=== PATIENT | female | born 1975 | race Caucasian/White ===

== ENCOUNTER 2017-11-17 17:54 | Inpatient (IN) | payer OTHER ==
--- NOTE | 2017-11-17 18:10 | PDOC ---
Rapid Medical Evaluation Chief Complaint: Bite Time Seen by Provider: 11/17/17 18:10 Medical Evaluation: Allergies Allergy/AdvReac Type Severity Reaction Status Date / Time No Known Allergies Allergy Verified 11/17/17 18:10 11/17/17 18:21 The patient presents with a chief complaint of: leg infection I have performed a brief in-person evaluation of this patient. Pertinent physical exam findings: vss I have ordered the following: labs, The patient will proceed to the ED for further evaluation.
[2017-11-17 18:12] VITALS: BMI 22.4
[2017-11-17 19:00] LABS: BASO % 0.3 % (0-2.0); EOS % 0.3 % (0-4.5); HEMATOCRIT 36.1 % (32.4-45.2); HEMOGLOBIN 11.9 GM/dL (10.7-15.3); LYMPH % 17.7 % (8-40); MCH 28.1 pg (25.7-33.7); MCHC 32.9 g/dl (32.0-36.0); MEAN CELL VOLUME 85.4 fl (80-96); MEAN PLT VOLUME 8.8 fl (7.5-11.1); MONO % 6.3 % (3.8-10.2); NEUT % 75.4 % (42.8-82.8); PLATELET COUNT 216 K/MM3 (134-434); RBC 4.23 M/mm3 (3.60-5.2); RDW 15.6 % (11.6-15.6); WHITE BLOOD COUNT 11.7 K/mm3 (4.0-10.0)
[2017-11-17 19:10] LABS: VENOUS PC02 43.7 mmHg (38-52); VENOUS PH 7.4 (7.32-7.42); VENOUS PO2 21.8 mmHg (28-48)
[2017-11-17 19:22] LABS: ALBUMIN 3.7 g/dl (3.4-5.0); ALK PHOS 72 U/L (45-117); ANION GAP 7 (8-16); BILIRUBIN,TOTAL 0.3 mg/dL (0.2-1.0); BLOOD UREA NITROGEN 8 mg/dL (7-18); CALCIUM 8.2 mg/dL (8.5-10.1); CHLORIDE 105 mmol/L (98-107); CO2 26 mmol/L (21-32); CREATININE 0.4 mg/dL (0.55-1.02); GLUCOSE,RANDOM 90 mg/dL (74-106); POTASSIUM 3.5 mmol/L (3.5-5.1); SGOT/AST 17 U/L (15-37); SGPT/ALT 21 U/L (12-78); SODIUM 138 mmol/L (136-145); TOT PROT 7.6 g/dl (6.4-8.2)
--- NOTE | 2017-11-17 19:24 | PDOC ---
History of Present Illness - General Chief Complaint: Wound Stated Complaint: BITE TO LEG Time Seen by Provider: 11/17/17 18:10 - History of Present Illness Initial Comments: 42 year old female with PMH of anemia (on iron supplementation) presenting with inner thigh swelling and pain for the past week that has gradually worsened. She believes she was bitten by an insect a week ago in her sleep but is unsure what the insect looked like. Since then the area of erythema and swelling gotten worse. She went to her usual health clinical and was prescribed a dose of Augmentin cream that hasn't helped. The original bite site has drained sero-sanguinous fluid. Denies fevers, chills, nausea, vomiting, diarrhea , SOB, chest pain, or other symptoms. 11/17/17 20:05 Past History - Past Medical History Allergies/Adverse Reactions: Allergies Allergy/AdvReac Type Severity Reaction Status Date / Time No Known Allergies Allergy Verified 11/17/17 18:10 Home Medications: Ambulatory Orders NK [No Known Home Medication] 11/17/17 - Suicide/Smoking/Psychosocial Hx Smoking History: Never smoked Hx Alcohol Use: No Drug/Substance Use Hx: No Review of Systems - Review of Systems Constitutional: No: Chills, Diaphoresis, Fever HEENTM: No: Blurred Vision Respiratory: No: Cough, Orthopnea Cardiac (ROS): No: Chest Pain, Lightheadedness ABD/GI: No: Nausea, Poor Appetite, Vomiting : No: Burning, Dysuria, Discharge Musculoskeletal: No: Muscle Pain, Muscle Weakness Integumentary: Yes: Erythema, Lesions, Lumps, Rash. No: Flushing Neurological: No: Headache, Numbness, Paresthesia, Tingling *Physical Exam - Vital Signs Last Vital Signs Temp Pulse Resp BP Pulse Ox 97.9 F 87 18 116/65 100 11/17/17 18:10 11/17/17 18:10 11/17/17 18:10 11/17/17 18:10 11/17/17 18:10 - Physical Exam General Appearance: Yes: Nourished, Appropriately Dressed. No: Apparent Distress HEENT: positive: EOMI, STEPHANIE, Normal ENT Inspection, Normal Voice Neck: positive: Trachea midline, Normal Thyroid, Rigid, Supple. negative: Tender Respiratory/Chest: positive: Lungs Clear, Normal Breath Sounds. negative: Chest Tender, Respiratory Distress, Accessory Muscle Use Cardiovascular: positive: Regular Rhythm, Regular Rate Gastrointestinal/Abdominal: positive: Normal Bowel Sounds, Flat, Soft. negative : Tender Musculoskeletal: positive: Normal Inspection. negative: Muscle Spasm Extremity: positive: Normal Capillary Refill, Normal Inspection, Normal Range of Motion. negative: Tender Integumentary: positive: Rash (Left medial thigh redness and erythema spreading from a central 1cm necrotic wound. Necrotic wound drainguin serous fluid and slightly fluctant but doesn't appear to be an impressive amoutn of subcutaneous fluid or collection. Erytham spreading approximately 7-8 cms circumferentially to the anterior and posterior thigh. No vascular compromise distal to the wound. No skin sloughing.). negative: Normal Color, Dry, Warm Neurologic: positive: Fully Oriented, Alert, Normal Mood/Affect, Normal Response , Motor Strength 12/20 ED Treatment Course - LABORATORY CBC & Chemistry Diagram: 11/17/17 18:49 11/17/17 18:49 - ADDITIONAL ORDERS Additional order review: Laboratory Results 11/17/17 19:05 VBG pH 7.40 POC VBG pCO2 43.7 POC VBG pO2 21.8 L Mixed VBG HCO3 26.6 H 11/17/17 18:49 RBC 4.23 MCV 85.4 MCHC 32.9 RDW 15.6 MPV 8.8 Neutrophils % 75.4 Lymphocytes % 17.7 Monocytes % 6.3 Eosinophils % 0.3 Basophils % 0.3 Medical Decision Making - Medical Decision Making 42 year old female with concern for left medial thigh cellulitis with a necrotic wound. Likely a spider bite (possibly brown recluse although geography isn't typical) but the story is typical (painless bite with central necrosis). No systemic signs but patient will be admitted for IV abx given slight WBC elevation of 11 and area of cellulitis. 11/17/17 20:21 *DC/Admit/Observation/Transfer Diagnosis at time of Disposition: Cellulitis Qualifiers: Site of cellulitis: extremity Site of cellulitis of extremity: lower extremity Laterality: left Qualified Code(s): L03.116 - Cellulitis of left lower limb - Discharge Dispostion Condition at time of disposition: Improved Admit: Yes - Referrals - Patient Instructions - Post Discharge Activity
[2017-11-17] MEDS ORDERED: VANCOMYCIN 1,000 MG in DEXTROSE 5%-WATER - 250 ML IVPB ONE (19:53)
[2017-11-17] MEDS ORDERED: VANCOMYCIN 1 GRAM (PRE-DOCKED) 1,000 MG/250 ML BAG IVPB ONE (20:00)
--- NOTE | 2017-11-17 20:01 | PDOC ---
Attending Attestation - Resident Resident Name: AnayeliDaniellarhiannon - ED Attending Attestation I have performed the following: I have examined & evaluated the patient, The case was reviewed & discussed with the resident, I agree w/resident's findings & plan, Exceptions are as noted - HPI HPI: 11/17/17 19:56 42-year-old female with no past medical history presents with left medial thigh cellulitis. One week ago, the patient was bitten by an insect. The patient has been applying [id number] topical antibiotic cream but reported that the cellulitis has extended significantly throughout the entire medial thigh. Patient denies fevers or chills. Reports significant pain. Came into the ED for further evaluation. - Physicial Exam PE: 11/17/17 19:59 GENERAL: Awake, alert, and fully oriented, in no acute distress. HEAD: No signs of trauma EYES: PERRLA, EOMI, sclera anicteric, conjunctiva clear ENT: Auricles normal inspection, hearing grossly normal, nares patent NECK: Normal ROM, supple EXTREMITIES: Normal range of motion, no edema. No clubbing or cyanosis. No cords, erythema, or tenderness NEUROLOGICAL: Cranial nerves II through XII grossly intact. Normal speech, normal gait SKIN: Warm, Dry. Large ~ 25x25 cm erythema, warm to touch, tender to palpation. Approx 10 x 10 cm induration with central mild oozing. - Medical Decision Making 11/17/17 20:01 Vital Signs Temp Pulse Resp BP Pulse Ox 97.9 F 87 18 116/65 100 11/17/17 18:10 11/17/17 18:10 11/17/17 18:10 11/17/17 18:10 11/17/17 18:10 42-year-old female presents with significant cellulitis. The cellulitis extends essentially throughout the entire medial thigh. Given the extensiveness, will give IV antibiotics and likely admit the patient to the hospital.
[2017-11-17] MEDS ORDERED: PIPERACIL/TAZOB 3.375 GM 3.375 GM/50 ML PREMIX IVPB ONE (20:15)
[2017-11-17] MEDS ORDERED: PIPERACILLIN/TAZOB 3.375 GM 3.375 GM/50 ML BAG IVPB ONE (22:54)
[2017-11-17] MEDS ORDERED: ACETAMINOPHEN 325 MG TABLET (FP) PO PRN (23:05)
--- NOTE | 2017-11-17 23:07 | HP ---
Admitting History and Physical - Primary Care Physician PCP: Suraj Rose - Admission History of Present Illness: 42-year-old female with no past medical history presents with left medial thigh cellulitis. One week ago, the patient was bitten by an insect. The patient has been applying [id number] topical antibiotic cream but reported that the cellulitis has extended significantly throughout the entire medial thigh. Patient denies fevers or chills. Reports significant pain. Came into the ED for further evaluation. - Smoking History Smoking history: Never smoked - Alcohol/Substance Use Hx Alcohol Use: No Home Medications - Allergies Allergies/Adverse Reactions: Allergies Allergy/AdvReac Type Severity Reaction Status Date / Time No Known Allergies Allergy Verified 11/17/17 18:10 - Home Medications Home Medications: Ambulatory Orders Doxycycline Hyclate [Vibramycin -] 100 mg PO BID@1000,1800 #28 capsule 11/21/17 Physical Examination Vital Signs: Vital Signs Temperature 97.9 F 11/17/17 18:10 Pulse Rate 87 11/17/17 18:10 Respiratory Rate 18 11/17/17 18:10 Blood Pressure 116/65 11/17/17 18:10 O2 Sat by Pulse Oximetry (%) 100 11/17/17 18:10 Constitutional: Yes: No Distress HENT: Yes: Atraumatic Neck: Yes: Supple Cardiovascular: Yes: Regular Rate and Rhythm Respiratory: Yes: CTA Bilaterally Gastrointestinal: Yes: Normal Bowel Sounds Extremities: Yes: Other (left thigh cellulitis) Neurological: Yes: Alert, Oriented Labs: CBC, BMP 11/17/17 18:49 11/17/17 18:49 Problem List - Problems (1) Cellulitis Assessment/Plan: iv abx per id need i and d Code(s): L03.90 - CELLULITIS, UNSPECIFIED Qualifiers: Site of cellulitis: extremity Site of cellulitis of extremity: lower extremity Laterality: left Qualified Code(s): L03.116 - Cellulitis of left lower limb Assessment/Plan Laboratory Tests 11/17/17 11/17/17 11/17/17 18:49 18:49 18:49 WBC 11.7 H RBC 4.23 Hgb 11.9 Hct 36.1 MCV 85.4 MCH 28.1 MCHC 32.9 RDW 15.6 Plt Count 216 MPV 8.8 Neutrophils % 75.4 Lymphocytes % 17.7 Monocytes % 6.3 Eosinophils % 0.3 Basophils % 0.3 VBG pH POC VBG pCO2 POC VBG pO2 Mixed VBG HCO3 Sodium 138 Potassium 3.5 Chloride 105 Carbon Dioxide 26 Anion Gap 7 L BUN 8 Creatinine 0.4 L Creat Clearance w eGFR > 60 Random Glucose 90 Lactic Acid 0.7 Calcium 8.2 L Total Bilirubin 0.3 AST 17 ALT 21 Alkaline Phosphatase 72 Total Protein 7.6 Albumin 3.7 Urine HCG, Qual 11/17/17 11/17/17 19:05 20:00 WBC RBC Hgb Hct MCV MCH MCHC RDW Plt Count MPV Neutrophils % Lymphocytes % Monocytes % Eosinophils % Basophils % VBG pH 7.40 POC VBG pCO2 43.7 POC VBG pO2 21.8 L Mixed VBG HCO3 26.6 H Sodium Potassium Chloride Carbon Dioxide Anion Gap BUN Creatinine Creat Clearance w eGFR Random Glucose Lactic Acid Calcium Total Bilirubin AST ALT Alkaline Phosphatase Total Protein Albumin Urine HCG, Qual Negative Active Medications Generic Name Dose Route Start Last Admin Trade Name Freq PRN Reason Stop Dose Admin Acetaminophen 650 mg 11/17/17 23:05 Tylenol - PO Q6H PRN FEVER
[2017-11-18 06:15] LABS: BASO % 0.4 % (0-2.0); EOS % 0.9 % (0-4.5); HEMATOCRIT 34.4 % (32.4-45.2); HEMOGLOBIN 11.5 GM/dL (10.7-15.3); LYMPH % 24.1 % (8-40); MCH 28.4 pg (25.7-33.7); MCHC 33.5 g/dl (32.0-36.0); MEAN CELL VOLUME 84.8 fl (80-96); MEAN PLT VOLUME 8.8 fl (7.5-11.1); MONO % 8.7 % (3.8-10.2); NEUT % 65.9 % (42.8-82.8); PLATELET COUNT 210 K/MM3 (134-434); RBC 4.06 M/mm3 (3.60-5.2); RDW 15.3 % (11.6-15.6); WHITE BLOOD COUNT 10.6 K/mm3 (4.0-10.0)
[2017-11-18 06:45] LABS: ALBUMIN 3.2 g/dl (3.4-5.0); ALK PHOS 59 U/L (45-117); ANION GAP 7 (8-16); BILIRUBIN,TOTAL 0.2 mg/dL (0.2-1.0); BLOOD UREA NITROGEN 9 mg/dL (7-18); CALCIUM 7.7 mg/dL (8.5-10.1); CHLORIDE 107 mmol/L (98-107); CO2 25 mmol/L (21-32); CREATININE 0.5 mg/dL (0.55-1.02); GLUCOSE,RANDOM 84 mg/dL (74-106); POTASSIUM 3.4 mmol/L (3.5-5.1); SGOT/AST 16 U/L (15-37); SGPT/ALT 18 U/L (12-78); SODIUM 139 mmol/L (136-145); TOT PROT 6.7 g/dl (6.4-8.2)
[2017-11-18] MEDS ORDERED: ACETAMINOPHEN 325 MG TABLET (FP) ONE (11:06)
--- NOTE | 2017-11-18 13:31 | CON.ID ---
Consult Consult Specialty:: infectious diseases Reason for Consultation:: thigh abscess - History of Present Illness Chief Complaint: pain swelling History of Present Illness: 42 year old female with PMH of anemia presenting with inner thigh swelling and pain for the past week that has gradually worsened. She believes she was bitten by an insect a week ago in her sleep but is unsure what the insect looked like. Since then the area of erythema and swelling gotten worse. She went to her usual health clinical and was prescribed a dose of Augmentin cream that hasn't helped. The original bite site has drained sero-sanguinous fluid. Denies fevers, chills, nausea, vomiting, diarrhea, SOB, chest pain, or other symptoms. currently patient comes with infected swelling with some drainage with pain and swelling present - History Source History Provided By: Patient, Family Member Limitations to Obtaining History: Language Barrier - Alcohol/Substance Use Hx Alcohol Use: No - Smoking History Smoking history: Never smoked Home Medications - Allergies Allergies/Adverse Reactions: Allergies Allergy/AdvReac Type Severity Reaction Status Date / Time No Known Allergies Allergy Verified 11/17/17 18:10 - Home Medications Home Medications: Ambulatory Orders NK [No Known Home Medication] 11/17/17 Review of Systems - Review of Systems Constitutional: reports: No Symptoms Eyes: reports: No Symptoms HENT: reports: No Symptoms Neck: reports: No Symptoms Cardiovascular: reports: No Symptoms Respiratory: reports: No Symptoms Gastrointestinal: reports: No Symptoms Genitourinary: reports: No Symptoms Musculoskeletal: reports: No Symptoms Integumentary: reports: Change in Color, Erythema, Wound Hematology/Lymphatic: reports: No Symptoms Psychiatric: reports: No Symptoms Physical Exam Vital Signs: Vital Signs Temperature 98.4 F 11/18/17 11:35 Pulse Rate 68 11/18/17 11:35 Respiratory Rate 16 11/18/17 11:35 Blood Pressure 116/68 11/18/17 11:35 O2 Sat by Pulse Oximetry (%) 98 11/18/17 11:35 Constitutional: Yes: Well Nourished, Calm, Mild Distress Eyes: Yes: Conjunctiva Clear HENT: Yes: Atraumatic Neck: Yes: Supple, Trachea Midline Cardiovascular: Yes: Regular Rate and Rhythm Respiratory: Yes: Regular, CTA Bilaterally Gastrointestinal: Yes: Normal Bowel Sounds, Soft Musculoskeletal: Yes: WNL Extremities: Yes: Other (erythema on the leg and swelling with some draiange) Wound/Incision: Yes: Draining Neurological: Yes: Alert, Oriented Psychiatric: Yes: Alert, Oriented Labs: CBC, BMP 11/18/17 05:55 11/18/17 05:55 Assessment/Plan bug bite abscess on the leg wound on the leg plan await for the cx reports will start patient on vanco and zosyn might need drainage rest as per primary team
[2017-11-18] MEDS ORDERED: PIPERACILLIN/TAZOBACTAM 3.375 GM VIAL IVPB ONE ×2 (14:14→17:12)
[2017-11-18] MEDS ORDERED: DEXTROSE 5%-WATER - 50 ML IVPB ONE ×2 (14:14→17:12)
[2017-11-18] MEDS: PIPERACILLIN/TAZOB 3.375 GM 3.375 GM in DEXTROSE 5%-WATER - 50 ML IVPB SCH ×2 (14:29→18:33)
[2017-11-18] MEDS ORDERED: PT OWN MED DRAWER 7, Y5N ONE (14:51)
[2017-11-18] MEDS: VANCOMYCIN 1,250 MG in DEXTROSE 5%-WATER - 250 ML IVPB SCH (15:29)
--- NOTE | 2017-11-18 17:15 | PN ---
Progress Note, Physician - Current Medication List Current Medications: Active Medications Acetaminophen (Tylenol -) 650 mg PO Q6H PRN PRN Reason: FEVER Last Admin: 11/18/17 10:54 Dose: 650 mg Vancomycin HCl 1,250 mg/ (Dextrose) 250 mls @ 166.667 mls/hr IVPB DAILY@1500 JUWAN PRN Reason: Protocol Last Admin: 11/18/17 15:29 Dose: 166.667 mls/hr Piperacillin Sod/Tazobactam (Sod 3.375 gm/ Dextrose) 50 mls @ 100 mls/hr IVPB Q8H-IV JUWAN PRN Reason: Protocol Last Admin: 11/18/17 14:29 Dose: 100 mls/hr - Objective Vital Signs: Vital Signs Temperature 98.3 F 11/18/17 15:09 Pulse Rate 81 11/18/17 15:09 Respiratory Rate 18 11/18/17 15:09 Blood Pressure 117/67 11/18/17 15:09 O2 Sat by Pulse Oximetry (%) 98 11/18/17 11:35 Constitutional: Yes: No Distress HENT: Yes: Atraumatic Neck: Yes: Supple Cardiovascular: Yes: Regular Rate and Rhythm Respiratory: Yes: CTA Bilaterally Gastrointestinal: Yes: Normal Bowel Sounds Extremities: Yes: Other (left thigh cellulitis) Edema: No Peripheral Pulses WNL: Yes Neurological: Yes: Alert, Oriented Labs: CBC, BMP 11/18/17 05:55 11/18/17 05:55 Problem List - Problems (1) Cellulitis Assessment/Plan: iv abx per id Code(s): L03.90 - CELLULITIS, UNSPECIFIED Qualifiers: Site of cellulitis: extremity Site of cellulitis of extremity: lower extremity Laterality: left Qualified Code(s): L03.116 - Cellulitis of left lower limb
[2017-11-19] MEDS ORDERED: PIPERACILLIN/TAZOBACTAM 3.375 GM VIAL IVPB ONE ×3 (02:06→17:32)
[2017-11-19] MEDS ORDERED: DEXTROSE 5%-WATER - 50 ML IVPB ONE ×3 (02:07→17:32)
[2017-11-19] MEDS: PIPERACILLIN/TAZOB 3.375 GM 3.375 GM in DEXTROSE 5%-WATER - 50 ML IVPB SCH ×3 (02:19→18:45)
--- NOTE | 2017-11-19 12:19 | PN ---
Progress Note, Physician History of Present Illness: patient doing well wound increased in size surgery going to see the patient - Current Medication List Current Medications: Active Medications Acetaminophen (Tylenol -) 650 mg PO Q6H PRN PRN Reason: FEVER Last Admin: 11/18/17 10:54 Dose: 650 mg Vancomycin HCl 1,250 mg/ (Dextrose) 250 mls @ 166.667 mls/hr IVPB DAILY@1500 JUWAN PRN Reason: Protocol Last Admin: 11/18/17 15:29 Dose: 166.667 mls/hr Piperacillin Sod/Tazobactam (Sod 3.375 gm/ Dextrose) 50 mls @ 100 mls/hr IVPB Q8H-IV JUWAN PRN Reason: Protocol Last Admin: 11/19/17 09:59 Dose: 100 mls/hr - Objective Vital Signs: Vital Signs Temperature 98.2 F 11/19/17 10:11 Pulse Rate 78 11/19/17 10:11 Respiratory Rate 18 11/19/17 10:11 Blood Pressure 111/63 11/19/17 10:11 O2 Sat by Pulse Oximetry (%) 98 11/18/17 23:10 Constitutional: Yes: No Distress, Calm Cardiovascular: Yes: Regular Rate and Rhythm Respiratory: Yes: Regular, CTA Bilaterally Musculoskeletal: Yes: WNL Extremities: Yes: Other Neurological: Yes: Alert, Oriented Psychiatric: Yes: Alert, Oriented Labs: CBC, BMP 11/18/17 05:55 11/18/17 05:55 Assessment/Plan Problem List - Problems (1) Carbuncle of left lower extremity Code(s): L02.436 - CARBUNCLE OF LEFT LOWER LIMB (2) Cellulitis of left thigh Code(s): L03.116 - CELLULITIS OF LEFT LOWER LIMB (3) Community acquired MRSA infection Code(s): A49.02 - METHICILLIN RESIS STAPH INFECTION, UNSP SITE (4) Left thigh pain Code(s): M79.652 - PAIN IN LEFT THIGH plan continue abx surgery to see the patient once patient is operated will switch to oral abx
[2017-11-19] MEDS ORDERED: PT OWN MED DRAWER 7, Y5N ONE (15:54)
[2017-11-19] MEDS: VANCOMYCIN 1,250 MG in DEXTROSE 5%-WATER - 250 ML IVPB SCH (16:07)
--- NOTE | 2017-11-19 17:15 | PN ---
Progress Note, Physician History of Present Illness: no complaint - Current Medication List Current Medications: Active Medications Acetaminophen (Tylenol -) 650 mg PO Q6H PRN PRN Reason: FEVER Last Admin: 11/18/17 10:54 Dose: 650 mg Vancomycin HCl 1,250 mg/ (Dextrose) 250 mls @ 166.667 mls/hr IVPB DAILY@1500 JUWAN PRN Reason: Protocol Last Admin: 11/19/17 16:07 Dose: 166.667 mls/hr Piperacillin Sod/Tazobactam (Sod 3.375 gm/ Dextrose) 50 mls @ 100 mls/hr IVPB Q8H-IV JUWAN PRN Reason: Protocol Last Admin: 11/19/17 09:59 Dose: 100 mls/hr - Objective Vital Signs: Vital Signs Temperature 97.4 F L 11/19/17 14:58 Pulse Rate 74 11/19/17 14:58 Respiratory Rate 18 11/19/17 14:58 Blood Pressure 90/62 11/19/17 14:58 O2 Sat by Pulse Oximetry (%) 98 11/18/17 23:10 Constitutional: Yes: No Distress HENT: Yes: Atraumatic Neck: Yes: Supple Cardiovascular: Yes: Regular Rate and Rhythm Respiratory: Yes: CTA Bilaterally Gastrointestinal: Yes: Normal Bowel Sounds Extremities: Yes: Other (left thigh cellulitis) Edema: Yes (left thigh) Neurological: Yes: Alert, Oriented Labs: CBC, BMP 11/18/17 05:55 11/18/17 05:55 Problem List - Problems (1) Cellulitis Assessment/Plan: iv abx per id Code(s): L03.90 - CELLULITIS, UNSPECIFIED Qualifiers: Site of cellulitis: extremity Site of cellulitis of extremity: lower extremity Laterality: left Qualified Code(s): L03.116 - Cellulitis of left lower limb
--- NOTE | 2017-11-19 23:16 | CONSULT ---
Consult Consult Specialty:: General Surgery Referred by:: Dr. Oliveros Reason for Consultation:: left medial thigh abscess - History of Present Illness Chief Complaint: left distal medial thigh swelling, redness, pain, warmth after bug bite History of Present Illness: 42yo healthy F with h/o anemia (took Fe last year) and s/p , felt something bite her left lower inner thigh during the night last Friday, but did not wake up fully. In the morning, she scratched the area because it itched but did not notice much. The next day, she saw a small pimple and thought that was all it was. But the area of redness grew larger, and more swollen and she went to her primary care clinic Friday. Her doctor there gave her an antibiotic cream to put on it, and advised her to return or go to ER if it got worse and not better. Over the next three days, it did continue to get more swollen, painful and warm, and the redness spread to the entire medial upper leg, so she came to ER on Friday. She was admitted to medical service with cellulitis of left thigh and a small area of possible abscess and started on IV antibiotics. Culture was sent, which is presumed MRSA as of today. She had a wbc which is coming down, and denies fever or chills, n/v, d/c, but had some trouble walking when the pain was the worst. Today, the pain and redness and swelling are much improved, per pt, as she has only very focal tenderness over the residual necrotic central lesion. The redness has receded to just around the lesion, and there is some serosanguineous and seropurulent drainage from blistered areas around the central necrotic site. ID requested surgical consultation. - History Source History Provided By: Patient, Medical Record Limitations to Obtaining History: No Limitations - Past Medical History ...: No Heme/Onc: Yes: Anemia (took iron last year) - Past Surgical History Past Surgical History: Yes: - Alcohol/Substance Use Hx Alcohol Use: Yes (social, ~twice monthly) History of Substance Use: reports: None - Smoking History Smoking history: Never smoked (used to smoke 1-2 cigs/day but not regularly, was 5-6 yrs ago) - Social History ADL: Independent Occupation: housekeeping Home Medications - Allergies Allergies/Adverse Reactions: Allergies Allergy/AdvReac Type Severity Reaction Status Date / Time No Known Allergies Allergy Verified 11/17/17 18:10 - Home Medications Home Medications: Ambulatory Orders NK [No Known Home Medication] 11/17/17 Family Disease History - Family Disease History Family History: Unremarkable (noncontributory) Review of Systems - Review of Systems Constitutional: denies: Chills, Fever Eyes: denies: Blurred Vision, Recent Change in Vision HENT: denies: Difficult Swallowing, Throat Pain Neck: denies: Swollen Glands, Tenderness Cardiovascular: denies: Chest Pain, Palpitations Respiratory: denies: Cough, SOB Gastrointestinal: denies: Abdominal Pain, Constipation, Diarrhea, Nausea, Vomiting Genitourinary: denies: Burning, Dysuria Musculoskeletal: reports: Extremity Pain (with hpi). denies: Back Pain, Joint Pain Integumentary: reports: Erythema (with hpi), Wound (with hpi) Neurological: denies: Dizziness, Headache Physical Exam Vital Signs: Vital Signs Temperature 97.7 F 11/19/17 18:40 Pulse Rate 77 11/19/17 18:40 Respiratory Rate 18 11/19/17 18:40 Blood Pressure 101/57 11/19/17 18:40 O2 Sat by Pulse Oximetry (%) 98 11/18/17 23:10 Vital Signs Period Temp Pulse Resp BP Sys/Yepez Pulse Ox Last 24 Hr 97.4 F-98.4 F 62-78 18-18 88-111/57-63 Constitutional: Yes: Well Nourished, No Distress, Calm Eyes: Yes: Conjunctiva Clear, EOM Intact HENT: Yes: Atraumatic, Normocephalic Neck: Yes: Supple, Trachea Midline Cardiovascular: Yes: Regular Rate and Rhythm Respiratory: Yes: Regular, CTA Bilaterally Gastrointestinal: Yes: Soft. No: Distention, Tenderness ...Rectal Exam: Yes: Deferred Renal/: No: CVA Tenderness - Left, CVA Tenderness - Right Musculoskeletal: No: Joint Stiffness, Joint Swelling Extremities: Yes: Erythema (local/focal around lower medial left thigh lesion). No: Cool, Cyanosis Edema: No Peripheral Pulses WNL: Yes Integumentary: Yes: Erythema (left lower medial thigh, focal around site of necrotic and blistered skin lesion, mildly indurated, locally tender only, minimally swollen, with full ROM of knee, serosang and seropurulent drainage from blistered areas, no significant drainage expressible from center but multiple small pale areas noted on background of dark/necrotic skin and tissue) Wound/Incision: Yes: Open to air, Draining, Reddened, Other (see above - left with gauze dressing over) Neurological: Yes: Alert, Oriented Psychiatric: Yes: Alert, Oriented Labs: CBC, BMP 11/18/17 05:55 11/18/17 05:55 wbc down from 11.7 Problem List - Problems (1) Carbuncle of left lower extremity Assessment/Plan: admitted to medicine on IV antibiotics per ID including Vanco improvement so far in cellulitis still with carbuncle in need of local debridement Discussed with patient risks, benefits and alternatives of local debridement of left thigh skin and subcutaneous tissue, including but not limited to bleeding, infection, injury to underlying vessels or nerves; alternatives include antibiotics, delayed or no surgery - risks of this include worsening infection, recurrent cellulitis, more extensive tissue loss, inability to heal infection. Patient agreeable to bedside procedure under local anesthetic. Will sign consent and perform tomorrow morning. Pt will need VNS arranged for daily wound care on discharge home. Daily packing changes will be necessary, though patient will be able to shower with packing OUT after first few days, as long as it is replaced shortly after. Details will be in discharge plan after procedure. Pain meds prn - primary team may Rx on discharge Tylenol alternating with ibuprofen should be mainstay, but narcotic may be necessary early on for dressing changes and prn breakthrough pain continue abx per ID, await sensitivities Code(s): L02.436 - CARBUNCLE OF LEFT LOWER LIMB (2) Cellulitis of left thigh Assessment/Plan: improved significantly per pt continue abx as per ID Code(s): L03.116 - CELLULITIS OF LEFT LOWER LIMB (3) Community acquired MRSA infection Assessment/Plan: on Vanco likely secondary to infection through break in skin, either from bug bite, or from scratching after pt counseled to be aware of her MRSA infection, and to promptly seek medical attention for future lesions, possible early skin infections anticipate completing abx course po on discharge or until cellulitis is fully resolved Code(s): A49.02 - METHICILLIN RESIS STAPH INFECTION, UNSP SITE (4) Left thigh pain Code(s): M79.104 - PAIN IN LEFT THIGH
[2017-11-20] MEDS ORDERED: PIPERACILLIN/TAZOBACTAM 3.375 GM VIAL IVPB ONE ×3 (01:35→18:34)
[2017-11-20] MEDS ORDERED: DEXTROSE 5%-WATER - 50 ML IVPB ONE ×3 (01:36→18:34)
[2017-11-20] MEDS: PIPERACILLIN/TAZOB 3.375 GM 3.375 GM in DEXTROSE 5%-WATER - 50 ML IVPB SCH ×4 (02:19→18:38)
[2017-11-20] MEDS ORDERED: LIDOCAINE 1%/EPI 1:100000 (20 ML MULTI DOSE VIAL) INF ONE (10:14)
[2017-11-20] MEDS ORDERED: morphine SULFATE 4 MG/ML VIAL IVPUSH ONE (11:30)
--- NOTE | 2017-11-20 11:48 | PN ---
Progress Note, Physician History of Present Illness: stable surgery going to do procedure on the patient - Current Medication List Current Medications: Active Medications Acetaminophen (Tylenol -) 650 mg PO Q6H PRN PRN Reason: FEVER Last Admin: 11/18/17 10:54 Dose: 650 mg Vancomycin HCl 1,250 mg/ (Dextrose) 250 mls @ 166.667 mls/hr IVPB DAILY@1500 JUWAN PRN Reason: Protocol Last Admin: 11/19/17 16:07 Dose: 166.667 mls/hr Piperacillin Sod/Tazobactam (Sod 3.375 gm/ Dextrose) 50 mls @ 100 mls/hr IVPB Q8H-IV JUWAN PRN Reason: Protocol Last Admin: 11/20/17 11:20 Dose: Not Given - Objective Vital Signs: Vital Signs Temperature 97.7 F 11/20/17 11:15 Pulse Rate 72 11/20/17 11:15 Respiratory Rate 20 11/20/17 11:15 Blood Pressure 122/78 11/20/17 11:15 O2 Sat by Pulse Oximetry (%) 98 11/18/17 23:10 Constitutional: Yes: No Distress, Calm Cardiovascular: Yes: Regular Rate and Rhythm Respiratory: Yes: Regular, CTA Bilaterally Gastrointestinal: Yes: Normal Bowel Sounds, Soft Musculoskeletal: Yes: Other Extremities: Yes: Other Neurological: Yes: Alert, Oriented Psychiatric: Yes: Alert, Oriented Labs: CBC, BMP 11/18/17 05:55 11/18/17 05:55 Assessment/Plan Problem List - Problems (1) Carbuncle of left lower extremity Code(s): L02.436 - CARBUNCLE OF LEFT LOWER LIMB (2) Cellulitis of left thigh Code(s): L03.116 - CELLULITIS OF LEFT LOWER LIMB (3) Community acquired MRSA infection Code(s): A49.02 - METHICILLIN RESIS STAPH INFECTION, UNSP SITE (4) Left thigh pain Code(s): M79.652 - PAIN IN LEFT THIGH plan continue abx surgery to see the patient will a2wait for final cx once we ahve final cx will decide abx
--- NOTE | 2017-11-20 11:57 | PROC ---
Incision and Drainage Indication/Location: I&D and local debridement of left medial thigh carbuncle Risks and Benefits Explained: Yes Consent on Chart: Yes Betadine cleansed: Yes Anesthesia: 1% Lidocaine w/ Epi (10ml) Blade Size: 15 Irrigated with Normal Saline: No (cleansed with gauze) Iodinated Packin/2 in Sterile Dressing Applied: Yes - Remarks Remarks: ellipse of necrotic skin and subcutaneous tissue sharply debrided with scalpel and forceps culture taken of deep portion of wound base minimal if any purulence 1/2" iodoform used for packing/dressing with gauze and tape
[2017-11-20] MEDS: ACETAMINOPHEN 325 MG TABLET (FP) PO PRN (14:18)
--- NOTE | 2017-11-20 15:12 | PN ---
Progress Note, Physician History of Present Illness: s/p i and d - Current Medication List Current Medications: Active Medications Acetaminophen (Tylenol -) 650 mg PO Q6H PRN PRN Reason: PAIN OR FEVER Last Admin: 11/20/17 14:18 Dose: 650 mg Vancomycin HCl 1,250 mg/ (Dextrose) 250 mls @ 166.667 mls/hr IVPB DAILY@1500 JUWAN PRN Reason: Protocol Last Admin: 11/19/17 16:07 Dose: 166.667 mls/hr Piperacillin Sod/Tazobactam (Sod 3.375 gm/ Dextrose) 50 mls @ 100 mls/hr IVPB Q8H-IV JUWAN PRN Reason: Protocol Last Admin: 11/20/17 12:11 Dose: 100 mls/hr - Objective Vital Signs: Vital Signs Temperature 98.4 F 11/20/17 14:18 Pulse Rate 75 11/20/17 14:18 Respiratory Rate 20 11/20/17 14:18 Blood Pressure 110/65 11/20/17 14:18 O2 Sat by Pulse Oximetry (%) 98 11/18/17 23:10 Constitutional: Yes: No Distress HENT: Yes: Atraumatic Neck: Yes: Supple Cardiovascular: Yes: Regular Rate and Rhythm Respiratory: Yes: CTA Bilaterally Gastrointestinal: Yes: Normal Bowel Sounds Extremities: Yes: Other (left thigh s/p i and d) Neurological: Yes: Alert, Oriented Labs: CBC, BMP 11/18/17 05:55 11/18/17 05:55 Problem List - Problems (1) Cellulitis Assessment/Plan: iv abx per id Code(s): L03.90 - CELLULITIS, UNSPECIFIED Qualifiers: Site of cellulitis: extremity Site of cellulitis of extremity: lower extremity Laterality: left Qualified Code(s): L03.116 - Cellulitis of left lower limb
[2017-11-20] MEDS: VANCOMYCIN 1,250 MG in DEXTROSE 5%-WATER - 250 ML IVPB SCH (15:59)
[2017-11-21] MEDS ORDERED: PIPERACILLIN/TAZOBACTAM 3.375 GM VIAL IVPB ONE ×2 (01:02→09:34)
[2017-11-21] MEDS ORDERED: DEXTROSE 5%-WATER - 50 ML IVPB ONE ×2 (01:02→09:34)
[2017-11-21] MEDS: PIPERACILLIN/TAZOB 3.375 GM 3.375 GM in DEXTROSE 5%-WATER - 50 ML IVPB SCH ×2 (02:38→09:44)
[2017-11-21] MEDS: ACETAMINOPHEN 325 MG TABLET (FP) PO PRN ×2 (09:57→18:32)
--- NOTE | 2017-11-21 13:44 | PN ---
Progress Note, Physician History of Present Illness: patient doing well no new issues surgery following the wound cx results noted - Current Medication List Current Medications: Active Medications Acetaminophen (Tylenol -) 650 mg PO Q6H PRN PRN Reason: PAIN OR FEVER Last Admin: 11/21/17 09:57 Dose: 650 mg - Objective Vital Signs: Vital Signs Temperature 97.9 F 11/21/17 06:58 Pulse Rate 62 11/21/17 06:58 Respiratory Rate 18 11/21/17 06:58 Blood Pressure 99/56 11/21/17 06:58 O2 Sat by Pulse Oximetry (%) 97 11/20/17 21:00 Constitutional: Yes: No Distress, Calm Cardiovascular: Yes: Regular Rate and Rhythm Respiratory: Yes: Regular, CTA Bilaterally Gastrointestinal: Yes: Normal Bowel Sounds, Soft Musculoskeletal: Yes: WNL Extremities: Yes: Other Wound/Incision: Yes: Dressing Dry and Intact Neurological: Yes: Alert, Oriented Psychiatric: Yes: Alert, Oriented Labs: CBC, BMP 11/18/17 05:55 11/18/17 05:55 Assessment/Plan Problem List - Problems (1) Carbuncle of left lower extremity Code(s): L02.436 - CARBUNCLE OF LEFT LOWER LIMB (2) Cellulitis of left thigh Code(s): L03.116 - CELLULITIS OF LEFT LOWER LIMB (3) Community acquired MRSA infection Code(s): A49.02 - METHICILLIN RESIS STAPH INFECTION, UNSP SITE (4) Left thigh pain Code(s): M79.652 - PAIN IN LEFT THIGH plan will change to oral abx continue current mgmt wound care doxy to be given for 2 weeks
--- NOTE | 2017-11-21 14:13 | PN ---
Progress Note, Physician History of Present Illness: Pt with left distal medial thigh carbuncle, MRSA, s/p I&D with debridement yesterday. Pt with improved pain, managing with tylenol prn. Has been OOB to bathroom. No fevers. Feeling a bit better. - Current Medication List Current Medications: Active Medications Acetaminophen (Tylenol -) 650 mg PO Q6H PRN PRN Reason: PAIN OR FEVER Last Admin: 11/21/17 09:57 Dose: 650 mg Doxycycline Hyclate (Vibramycin -) 100 mg PO BID@1000,1800 JUWAN - Objective Vital Signs: Vital Signs Temperature 97.9 F 11/21/17 06:58 Pulse Rate 62 11/21/17 06:58 Respiratory Rate 18 11/21/17 06:58 Blood Pressure 99/56 11/21/17 06:58 O2 Sat by Pulse Oximetry (%) 97 11/20/17 21:00 Constitutional: Yes: Well Nourished, No Distress, Calm Eyes: Yes: Conjunctiva Clear, EOM Intact HENT: Yes: Atraumatic, Normocephalic Extremities: Yes: Erythema (less - focal around left distal thigh wound only). No: Cool, Cyanosis Integumentary: Yes: Other (left distal medial thigh wound, clean with red base, some peripheral sloughing skin from opened blisters, mild local induration - improving). No: Rash Wound/Incision: Yes: Dressing Removed (and replaced - single saline-dampened 2x2 in wound bed, covered with folded dry 2x2 and 4x4, secured with tape avoiding sloughing skin areas), Reddened (mild local residual erythema), Unapproximated. No: Dressing Dry and Intact (dressing intact, with serosang dried drainage), Bleeding Neurological: Yes: Alert, Oriented Labs: Problem List - Problems (1) Carbuncle of left lower extremity Assessment/Plan: s/p I&D with local debridement of distal medial L thigh carbuncle (MRSA) Continue daily dressing changes - see d/c plan for detailed instructions Pain meds prn - primary team may Rx on discharge Tylenol alternating with ibuprofen should be mainstay, but narcotic may be necessary early on for dressing changes and prn breakthrough pain continue abx per ID - change to PO to complete course on discharge Code(s): L02.436 - CARBUNCLE OF LEFT LOWER LIMB (2) Cellulitis of left thigh Assessment/Plan: continues to improve antibiotics per ID Code(s): L03.116 - CELLULITIS OF LEFT LOWER LIMB (3) Community acquired MRSA infection Assessment/Plan: on Vanco - changing to PO doxycycline; anticipate completion of course at home pt counseled to be aware of her MRSA infection, and to promptly seek medical attention for future lesions, possible early skin infections Code(s): A49.02 - METHICILLIN RESIS STAPH INFECTION, UNSP SITE (4) Left thigh pain Assessment/Plan: improved Code(s): M79.652 - PAIN IN LEFT THIGH
--- NOTE | 2017-11-21 16:44 | DS ---
Physical Examination Vital Signs: Vital Signs Temperature 98.1 F 11/21/17 15:25 Pulse Rate 66 11/21/17 15:25 Respiratory Rate 18 11/21/17 15:25 Blood Pressure 99/64 11/21/17 15:25 O2 Sat by Pulse Oximetry (%) 97 11/21/17 09:00 Constitutional: Yes: No Distress HENT: Yes: Atraumatic Neck: Yes: Supple Cardiovascular: Yes: Regular Rate and Rhythm Respiratory: Yes: CTA Bilaterally Gastrointestinal: Yes: Normal Bowel Sounds Extremities: Yes: Other (left thigh getting better) Edema: No Neurological: Yes: Alert, Oriented Labs: CBC, BMP 11/18/17 05:55 11/18/17 05:55 Discharge Summary Reason For Visit: CELLULITIS Current Active Problems Carbuncle of left lower extremity (Acute) Cellulitis (Acute) Cellulitis of left thigh (Acute) Community acquired MRSA infection (Acute) Left thigh pain (Acute) Condition: Improved - Instructions Diet, Activity, Other Instructions: Postoperative instructions: You had incision and drainage with debridement of left thigh carbuncle/abscess on 11/20/[address] Ochoa Arguello of [facility]. Activity: Resume your usual activities gradually; make sure you can straighten your leg/knee all the way periodically during healing. You may shower daily with the dressing OFF and the packing OUT; just pat the wound dry afterward and redo the dressing every day. It is ok to take the wound dressing off in the shower. You cannot hurt the wound with soap and water - it is ok to get it wet. Do not put any other ointments, creams or anything on the wound except as written below. Wound care: DAILY - after your shower, dampen a small 2x2 gauze with saline solution and squeeze the fluid out of it so it does not drip. Unfold it a little and tuck it into the base of the wound to cover all of the inside red/ dark area. Try to keep the damp gauze off of the skin outside the edge of the wound. Cover the whole wound with folded dry gauze (2x2 and 4x4 as needed, enough to protect the irritated skin around it), and use paper tape over to keep the dressing in place. Pain: For pain, you may use and alternate Tylenol (acetaminophen) and/or ibuprofen every 6 hours each as needed; this means that you can take one OR the other at 3-hour intervals. Do not take more than 4000mg of acetaminophen in a day. Take medications as prescribed or indicated on the labeling. You will probably want to take some pain medication about 30-45 minutes before you plan to do your dressing and just before coming to see Dr. Arguello. Follow-up: Call Dr. Arguello's office at [phone] to make your postop appointment (Friday next week as advised). Clinic is held in the [facility] on the first floor of [facility]. Call the office if you have: * increasing pain not responsive to pain medication * fever of 101F or higher * vomiting * unusual or increasing bleeding or drainage from wound * increasing redness or swelling at wound site Also, see your primary medical doctor within 1-2 weeks. Referrals: Ochoa Arguello MD [Staff Physician] - 1 Week Disposition: HOME - Home Medications Comprehensive Discharge Medication List: Ambulatory Orders Doxycycline Hyclate [Vibramycin -] 100 mg PO BID@1000,1800 #28 capsule 11/21/17
[2017-11-21 17:07] VITALS: BP 93/58; PULSE 65; TEMP 98.3
[2017-11-21] MEDS ORDERED: DOXYCYCLINE HYCLATE 100 MG CAPSULE PO SCH (18:00)
== END 2017-11-21 20:11 | disposition home or self-care (01) | DRG 383 ==
LOC: JERFT 17:54 → JER 17:54 → JERBED 20:28 → J5S 11-18 13:54 → OBSVTOIN 11-19 14:00 → J8W 11-20 20:11
PROVIDERS: ADMIT Internal Medicine; ATTEND Internal Medicine
PROC: 0JBP0ZZ Excision of Left Lower Leg Subcutaneous Tissue and Fascia, Open Approach (ICD-10-PCS; principal; 2017-11-20)
PROC: 0J9P0ZX Drainage of Left Lower Leg Subcutaneous Tissue and Fascia, Open Approach, Diagnostic (ICD-10-PCS; 2017-11-20)
DX: L03.116 Cellulitis of left lower limb (principal); L02.436 Carbuncle of left lower limb; S70.362A Insect bite (nonvenomous), left thigh, initial encounter; B95.62 Methicillin resistant Staphylococcus aureus infection as the cause of diseases classified elsewhere; M79.652 Pain in left thigh; D64.9 Anemia, unspecified; L53.9 Erythematous condition, unspecified
CPT/HCPCS: 36415; 80053; 82803; 83605; 84703; 85025; 87040; 87070; 87186; 87205; 99283-25; G0378